=== PATIENT | female | born 1960 | race African-American/Black ===

== ENCOUNTER 2019-09-08 04:30 | Emergency (ER) | payer OTHER ==
[~2019-09-08] VITALS: Ht 182.9 cm; Wt 72.6 kg
[2019-09-08] MEDS ORDERED: KETOROLAC TROMETH 60MG/2ML VIAL IM ONE (07:30)
[2019-09-08 07:33] VITALS: BP 116/72
== END 2019-09-08 08:36 | disposition home or self-care (01) ==
LOC: ER 04:30
DX: M13.831 Other specified arthritis, right wrist (principal); M13.841 Other specified arthritis, right hand
CPT/HCPCS: 36415; 73110; 73130; 84550; 96372; 99284; J1885